=== PATIENT | male | born 1975 | race Caucasian/White ===

== ENCOUNTER 2018-02-26 08:07 | Emergency (ER) | payer OTHER ==
[~2018-02-26 08:07] MED LIST: CLON0.5T3 PO; DILT40TA PO; DOXE50CA3 PO; LEVE750T PO; PRLSR20 PO; SUCR1TAB29 PO; TOPI50TA16 PO
[2018-02-26] MEDS ORDERED: LEVETIRACETAM 500 MG TAB PO STA (08:18)
[2018-02-26] MEDS ORDERED: TOPIRAMATE 50 MG TAB PO STA (08:18)
[2018-02-26 09:01] LABS: BASO % 0.5 %; BASO ABS # 0.04 K/uL (0-0.2); EOS % 2.4 %; EOS ABS # 0.18 K/uL (0-0.5); HEMOGLOBIN 15.9 g/dL (14.0-18.0); IG# 0.02 K/uL (0.00-0.02); LYMPH % 15.1 %; LYMPH ABS # 1.15 K/uL (1.2-3.4); MEAN CELL VOLUME 92.9 fL (80-100); MEAN CORPUSCULAR HEMOGLOBIN 31.4 pg (25-34); MEAN CORPUSCULAR HGB CONC 33.8 g/dl (32-36); MEAN PLATELET VOLUME 10.2 fL (7.4-10.4); MONO % 8.5 %; MONO ABS # 0.65 K/uL (0.11-0.59); NEUT % 73.2 %; NEUT ABS # 5.57 K/uL (1.4-6.5); PLATELET COUNT 247 K/uL (130-400); WHITE BLOOD COUNT 7.61 K/uL (4.8-10.8)
[2018-02-26] MEDS ORDERED: TOPI100T20 PO (09:06)
[2018-02-26 09:19] LABS: ALBUMIN 4.3 gm/dl (3.4-5.0); ALT/SGPT 76 U/L (12-78); AST/SGOT 60 U/L (15-37); BLOOD UREA NITROGEN 8 mg/dl (7-18); CALCIUM 8.6 mg/dl (8.5-10.1); CARBON DIOXIDE 24 mmol/L (21-32); CREATININE 0.98 mg/dl (0.60-1.40); GLUCOSE 92 mg/dl (70-99); POTASSIUM 4.2 mmol/L (3.5-5.1); SODIUM 140 mmol/L (136-145)
--- NOTE | 2018-02-26 09:19 | DIAGNOSTIC IMAGING REPORT ---
L HAND 2 VIEWS CLINICAL HISTORY: Left hand pain. COMPARISON: None FINDINGS: Alignment of the left hand is anatomic. No fracture or suspicious lesion is identified. No erosions are identified. A tiny ossific/calcific density projecting of the radiocarpal joint is likely degenerative. IMPRESSION: No acute fracture or dislocation within the left hand. Electronically signed by: Jerardo Dhaliwal M.D. 02/26/2018 9:17 AM Dictated Date/Time: 02/26/2018 9:16 AM
[2018-02-26 09:30] LABS: ALKALINE PHOSPHATASE 117 U/L (45-117)
--- NOTE | 2018-02-26 09:57 | EMERGENCY ROOM VISIT NOTE ---
History Report prepared by Cristopheribish: Nimesh Atkins Under the Supervision of: Dr. Jaguar Kan M.D. First contact with patient: 08:10 Stated Complaint: AMS History of Present Illness The patient is a 42 year old white male with a past medical history of epilepsy , personality disorder and bipolar disorder who presents to the ED by police/ EMS for a mental health evaluation. Per police, the patient called [facility] last night because he was upset that his doctor had moved away. They state that the patient made comments about wanting to shoot up the police barracks, and drive a truck through the [place] during the exchange. Police picked up the patient today. They state that the patient had a sudden angry outburst followed by speaking in a different language. The patient denies SI or HI. He states that he is concerned he may need his seizure medications. Positive left hand numbness. He feels this may be related to a wrist injury. Patient quit smoking 1.5 years ago. He denies any increased stresses in his life recently. He reports decreased sleep recently. Source of History: patient Quality: other (mental health evaluation) Associated Symptoms: + numbness (left hand) Review of Systems See HPI for pertinent positives and negatives. A total of ten systems were reviewed and were otherwise negative. Past Medical & Surgical Medical Problems: (1) Bipolar disorder (2) Epilepsy (3) Personality disorder Family History No pertinent family history stated. Social History Smoking Status: Former Smoker Current/Historical Medications Scheduled Levetiracetam (Keppra), 750 MG PO BID Omeprazole (Prilosec), 20 MG PO QAM Topiramate (Topamax), 50 MG PO QAM Topiramate (Topamax), 100 MG PO QPM Scheduled PRN Clonazepam (Klonopin), 0.5 MG PO TID PRN for Anxiety Sucralfate (Carafate), 1 GM PO DAILY PRN for STOMACH UPSET Allergies Coded Allergies: Tetanus Toxoids (Verified Allergy, Severe, THROAT SWELLS, 02/26/18) Iodinated Diagnostic Agents (Verified Allergy, Intermediate, ITCHY, 02/26/18 ) Corticosteroids (Verified Allergy, Mild, MUSCLE LOCK UP, 02/26/18) Physical Exam Vital Signs Date Time Temp Pulse Resp B/P (MAP) Pulse Ox O2 Delivery O2 Flow Rate FiO2 02/26/18 11:03 37.1 85 20 118/72 95 02/26/18 10:54 85 20 118/72 95 Room Air 02/26/18 08:19 37.1 105 20 131/93 97 Room Air Physical Exam GENERAL: Awake, alert, well-appearing, NAD. Tearful. HENT: Normocephalic, atraumatic. EYES: Normal conjunctiva. Sclera non-icteric. PERRL. No anisocoria. NECK: Supple. No nuchal rigidity. FROM. RESPIRATORY: CTAB, no rhonchi, wheezing, crackles CARDIAC: RRR, no MRG ABDOMEN: Soft, NTND, BS+ MSK: No chest wall TTP, no LE edema. Discomfort to the first and second digits of the left hand. NEURO: GCS 15, CN 2-12 intact, moves all 4s on command SKIN: No rash or jaundice noted. PSYCH: Adverts gaze. No SI, or HI. No AVH. Medical Decision & Procedures ER Provider Diagnostic Interpretation: Radiology results as stated below per my review and radiologist interpretation: L HAND 2 VIEWS FINDINGS: Alignment of the left hand is anatomic. No fracture or suspicious lesion is identified. No erosions are identified. A tiny ossific/calcific density projecting of the radiocarpal joint is likely degenerative. IMPRESSION: No acute fracture or dislocation within the left hand. Electronically signed by: Jerardo Dhaliwal M.D. 02/26/2018 9:17 AM Laboratory Results 02/26/18 08:48 Red Blood Count 5.06, Mean Corpuscular Volume 92.9, Mean Corpuscular Hemoglobin 31.4, Mean Corpuscular Hemoglobin Concent 33.8, Mean Platelet Volume 10.2, Neutrophils (%) (Auto) 73.2, Lymphocytes (%) (Auto) 15.1, Monocytes (%) (Auto) 8.5, Eosinophils (%) (Auto) 2.4, Basophils (%) (Auto) 0.5, Neutrophils # (Auto) 5.57, Lymphocytes # (Auto) 1.15, Monocytes # (Auto) 0.65, Eosinophils # (Auto) 0.18, Basophils # (Auto) 0.04 02/26/18 08:48 Test 02/26/18 08:48 02/26/18 09:04 White Blood Count 7.61 K/uL (4.8-10.8) Red Blood Count 5.06 M/uL (4.7-6.1) Hemoglobin 15.9 g/dL (14.0-18.0) Hematocrit 47.0 % (42-52) Mean Corpuscular Volume 92.9 fL (80-100) Mean Corpuscular Hemoglobin 31.4 pg (25-34) Mean Corpuscular Hemoglobin Concent 33.8 g/dl (32-36) Platelet Count 247 K/uL (130-400) Mean Platelet Volume 10.2 fL (7.4-10.4) Neutrophils (%) (Auto) 73.2 % Lymphocytes (%) (Auto) 15.1 % Monocytes (%) (Auto) 8.5 % Eosinophils (%) (Auto) 2.4 % Basophils (%) (Auto) 0.5 % Neutrophils # (Auto) 5.57 K/uL (1.4-6.5) Lymphocytes # (Auto) 1.15 K/uL (1.2-3.4) Monocytes # (Auto) 0.65 K/uL (0.11-0.59) Eosinophils # (Auto) 0.18 K/uL (0-0.5) Basophils # (Auto) 0.04 K/uL (0-0.2) RDW Standard Deviation 44.0 fL (36.4-46.3) RDW Coefficient of Variation 13.0 % (11.5-14.5) Immature Granulocyte % (Auto) 0.3 % Immature Granulocyte # (Auto) 0.02 K/uL (0.00-0.02) Anion Gap 9.0 mmol/L (3-11) Estimated GFR () 108.2 Estimated GFR (Non- 93.4 BUN/Creatinine Ratio 8.0 (10-20) Calcium Level 8.6 mg/dl (8.5-10.1) Total Bilirubin 0.3 mg/dl (0.2-1) Direct Bilirubin 0.2 mg/dl (0-0.2) Aspartate Amino Transf (AST/SGOT) 60 U/L (15-37) Alanine Aminotransferase (ALT/SGPT) 76 U/L (12-78) Alkaline Phosphatase 117 U/L (45-117) Total Protein 8.0 gm/dl (6.4-8.2) Albumin 4.3 gm/dl (3.4-5.0) Thyroid Stimulating Hormone (TSH) 4.670 uIu/ml (0.300-4.500) Salicylates Level 2.1 mg/dl (2.8-20) Acetaminophen Level < 2 ug/ml (10-30) Ethyl Alcohol mg/dL 166.6 mg/dl (0-3) Urine Color YELLOW Urine Appearance CLEAR (CLEAR) Urine pH 5.0 (4.5-7.5) Urine Specific [place] 1.012 (1.000-1.030) Urine Protein NEG (NEG) Urine Glucose (UA) NEG (NEG) Urine Ketones NEG (NEG) Urine Occult Blood NEG (NEG) Urine Nitrite NEG (NEG) Urine Bilirubin NEG (NEG) Urine Urobilinogen NEG (NEG) Urine Leukocyte Esterase NEG (NEG) Urine Opiates Screen NEG (NEG) Urine Methadone, Qualitative NEG (NEG) Urine Barbiturates NEG (NEG) Urine Phencyclidine (PCP) Level NEG (NEG) Ur Amphetamine/Methamphetamine NEG (NEG) MDMA (Ecstasy) Screen NEG (NEG) Urine Benzodiazepines Screen NEG (NEG) Urine Cocaine Metabolite NEG (NEG) Urine Marijuana (THC) POS (NEG) Laboratory results reviewed by me Medications Administered Medications (Trade) Dose Ordered Sig/Briana Route Start Time Stop Time Status Last Admin Dose Admin Levetiracetam (Keppra Tab) 750 mg BID STAT PO 02/26/18 08:18 02/26/18 08:21 DC 02/26/18 09:01 750 MG Topiramate (Topamax Tab) 50 mg BID STAT PO 02/26/18 08:18 02/26/18 08:21 DC 02/26/18 09:01 50 MG ECG Per My Interpretation Indication: other (mental health eval) Rate (beats per minute): 93 Rhythm: normal sinus Findings: other (Normal intervals. Normal axis. ) ED Course 0816: The patient was evaluated in room B9. A complete history and physical exam was performed. 1040: I reevaluated the patient. Discussed results and discharge instructions: he verbalized understanding and agreement. The patient is ready for discharge. Medical Decision Nursing notes reviewed. Ancillary studies and prior records reviewed. Differential diagnosis: Etiologies such as metabolic, infection, hypoglycemia, electrolyte abnormalities , cardiac sources, intracerebral event, toxicologic, neurologic, as well as others were entertained. Patient was seen and evaluated the bedside. Patient reportedly had called into the [place] threatened to shoot police. On exam the patient is tearful and the patient only has complaints of some pain in his first and second digits of his left hand. No evidence of trauma. The patient is neurovascular intact. Patient did have blood work completed the patient was ordered his home dose of Topamax and Keppra as scheduled. Patient did have mild elevated TSH because of the blood work is fairly unremarkable. The patient was in involuntary commitment. The patient's alcohol was 160. Patient was deemed medically clear. Patient reportedly has only made idle threats. The patient was evaluated by the mental health specialist that the patient is suitable for [facility] as the [facility] does have psychiatric care. He has made terroristic threats to drive his van through the [employer] building and was threatening to shoot people. He is currently charged under police custody and they do have psych available at the fdc. The patient was deemed suitable to be discharged to the custody of police with further follow-up in house at the fdc. Patient was given strict follow-up, discharge, and return precautions. All questions were answered. Patient was deemed suitable for outpatient follow-up at this time. Patient agreed with the plan of care and was safely discharged home. Medication Reconcilliation Current Medication List: was personally reviewed by me Blood Pressure Screening Patient's blood pressure: Elevated blood pressure Blood pressure disposition: Elevated BP felt to be situational Impression Primary Impression: Depression Additional Impressions: Threatening to others Encounter for alcohol cessation counseling Scribe Attestation The scribe's documentation has been prepared under my direction and personally reviewed by me in its entirety. I confirm that the note above accurately reflects all work, treatment, procedures, and medical decision making performed by me. Departure Information Dispostion Home / Self-Care Referrals Andres Peters M.D. (PCP) Patient Instructions Alcohol Abuse - [facility], [facility] Additional Instructions Please return to the emergency department if you have worsening or recurrent symptoms not amenable to at-home treatment. Please call for a follow-up appointment with her primary care physician. Please take your medications as prescribed. If you have other concerns and/or complaints please feel free to also call your primary care physician's office or return the ED for further evaluation, management, and treatment. Consider stopping alcohol use. Take your medications as prescribed. You have been examined and treated today on an emergency basis only. This is not a substitute for, or an effort to provide, complete comprehensive medical care. It is impossible to recognize and treat all injuries or illnesses in a single emergency department visit. It is therefore important that you follow up closely with [facility], your PCP, and/or your specialist(s). Call as soon as possible for an appointment. Thank you for your time and consideration. I look forward to speaking with you again soon. Please don't hesitate to call us if you have any questions. Problem Qualifiers Primary Impression: Depression Depression Type: unspecified Qualified Codes: F32.9 - Major depressive disorder, single episode, unspecified
[2018-02-26 11:03] VITALS: BP 118/72; PULSE 85; TEMP 37.1; O2SAT 95
== END 2018-02-26 11:15 | disposition home or self-care (01) ==
LOC: EDBD 08:07 → C.EDB 08:09 → C.EDA 11:15
DX: F32.9 Major depressive disorder, single episode, unspecified (principal); F91.8 Other conduct disorders; F31.9 Bipolar disorder, unspecified; F60.9 Personality disorder, unspecified; G40.909 Epilepsy, unspecified, not intractable, without status epilepticus; Z79.899 Other long term (current) drug therapy; Z88.8 Allergy status to other drugs, medicaments and biological substances